=== PATIENT | female | born 1980 | race African-American/Black ===

== ENCOUNTER 2020-11-04 21:28 | Emergency (ER) | payer SELFPAY ==
[2020-11-04] MEDS ORDERED: KETOROLAC 30 MG/ML INJ ONE (22:33)
[2020-11-05 00:10] LABS: SARS-COV-2 RT PCR NEGATIVE (NEGATIVE)
--- NOTE | 2020-11-05 00:16 | EDPHYS ---
Physician Documentation [facility] Name: Cyndy Valdez Age: 40 yrs Sex: Female : 1980 Arrival Date: 11/04/2020 Time: 21:37 Bed 16 Private MD: ED Physician Kenn Lassiter HPI: 11/04 22:10 This 40 yrs old Black Female presents to ER via Ambulatory with complaints of Sore snw Throat, Cough, Fever. 22:10 This 40 yrs old Black Female presents to ER via Ambulatory with complaints of Sore snw Throat, Cough, Fever. 22:10 The patient presents with sore throat. The patient describes throat pain as raw, snw scratchy. Onset: The symptoms/episode began/occurred suddenly, today. Severity of symptoms: At their worst the symptoms were moderate. Modifying factors: The patient has had contact with sick at work. Associated signs and symptoms: Pertinent positives: flu-like symptoms, malaise, nausea. The patient has not experienced similar symptoms in the past. The patient has not recently seen a physician. 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 - Social history:: Smoking status: Patient reports the use of cigarette tobacco products, smokes one-half pack cigarettes per day. ROS: 22:09 Eyes: Negative for injury, pain, redness, and discharge, Neck: Negative for injury, snw pain, and swelling, Cardiovascular: Negative for chest pain, palpitations, and edema, Respiratory: Negative for shortness of breath, cough, wheezing, and pleuritic chest pain, Back: Negative for injury and pain, : Negative for injury, bleeding, discharge, and swelling, MS/Extremity: Negative for injury and deformity, Skin: Negative for injury, rash, and discoloration, Neuro: Negative for headache, weakness, numbness, tingling, and seizure. 22:09 Constitutional: Positive for body aches, malaise. 22:09 ENT: Positive for sore throat. 22:09 Abdomen/GI: Positive for nausea. Exam: 22:08 Head/Face: Normocephalic, atraumatic. Eyes: Pupils equal round and reactive to light, snw extra-ocular motions intact. Lids and lashes normal. Conjunctiva and sclera are non-icteric and not injected. Cornea within normal limits. Periorbital areas with no swelling, redness, or edema. Neck: Trachea midline, no thyromegaly or masses palpated, and no cervical lymphadenopathy. Supple, full range of motion without nuchal rigidity, or vertebral point tenderness. No Meningismus. Chest/axilla: Normal chest wall appearance and motion. Nontender with no deformity. No lesions are appreciated. Cardiovascular: Regular rate and rhythm with a normal S1 and S2. No gallops, murmurs, or rubs. Normal PMI, no JVD. No pulse deficits. Respiratory: Lungs have equal breath sounds bilaterally, clear to auscultation and percussion. No rales, rhonchi or wheezes noted. No increased work of breathing, no retractions or nasal flaring. Abdomen/GI: Soft, non-tender, with normal bowel sounds. No distension or tympany. No guarding or rebound. No evidence of tenderness throughout. Back: No spinal tenderness. No costovertebral tenderness. Full range of motion. Skin: Warm, dry with normal turgor. Normal color with no rashes, no lesions, and no evidence of cellulitis. MS/ Extremity: Pulses equal, no cyanosis. Neurovascular intact. Full, normal range of motion. Neuro: Awake and alert, GCS 15, oriented to person, place, time, and situation. Cranial nerves II-XII grossly intact. Motor strength 5/5 in all extremities. Sensory grossly intact. Cerebellar exam normal. Normal gait. Psych: Awake, alert, with orientation to person, place and time. Behavior, mood, and affect are within normal limits. 22:08 Constitutional: The patient appears alert, awake, tired appearing 22:08 ENT: External ear(s): are unremarkable, Ear canal(s): are normal, TM's: are normal, Nose: is normal, Mouth: Oral mucosa: pink and intact, Posterior pharynx: swelling, that is mild, erythema, that is moderate, exudate, is not appreciated, Voice: is normal. Vital Signs: 21:40 BP 100 / 76; Pulse 93; Resp 16 S; Temp 97.7(TE); Pulse Ox 99% on R/A; Weight 78.02 kg ca1 (R); Height 5 ft. 2 in. (157.48 cm) (R); Pain 5/10; 22:30 BP 124 / 82; Pulse 82; Resp 16; Pulse Ox 100% on R/A; zb 11/05 00:35 BP 121 / 85; Pulse 80; Resp 17; Pulse Ox 98% ; rr5 11/04 21:40 Body Mass Index 31.46 (78.02 kg, 157.48 cm) ca1 MDM: 11/04 21:49 Patient medically screened. snw 22:40 Data reviewed: vital signs, nurses notes. Data interpreted: Pulse oximetry: on room air snw is 99 %. Interpretation: normal. 11/04 22:05 Order name: Strep; Complete Time: 23:46 snw 11/04 23:46 Order name: Throat Culture EDMS 11/05 00:11 Order name: COVID-19/FLU A+B; Complete Time: 00:15 EDMS Administered Medications: 22:22 Drug: TORadol 60 mg Route: IM; Site: right gluteus; zb 23:19 Follow up: Response: No adverse reaction; Marked relief of symptoms zb Disposition: 11/05 06:07 Co-signature as Attending Physician, Kenn Lassiter MD. [facility] Disposition: 11/05/20 00:15 Discharged to Home. Impression: Disease of upper respiratory tract, unspecified. - Condition is Stable. - Discharge Instructions: Upper Respiratory Infection, Adult, COVID-19. - Prescriptions for Vitamin 27- 0.8 mg Oral Tablet - take 1 tablet by ORAL route once daily; 60 tablet. - Work release form, Medication Reconciliation Form, Thank You Letter, Antibiotic Education, Prescription Opioid Use form. - Follow up: Private Physician; When: 2 - 3 days; Reason: Recheck today's complaints, Continuance of care. Follow up: Emergency Department; When: As needed; Reason: Worsening of condition. Signatures: Dispatcher [employer] EDMS Lizette Crowder FNP-C SOIL CONSERVATIONIST-Csnw Can Coleman RN RN rr5 Olena Kidd RN RN [facility] Kenn Lassiter MD MD mh7 Tanya Rosas, RN RN zb Corrections: (The following items were deleted from the chart) 11/04 21:39 21:37 Social history: Smoking status: ca1 ca1 22:58 22:05 Influenza Screen (A \T\ B)+BA.LAB.BRZ ordered. EDID EDMS 11/05 00:51 00:15 11/05/2020 00:15 Discharged to Home. Impression: Disease of upper respiratory rr5 tract, unspecified. Condition is Stable. Forms are Medication Reconciliation Form, Thank You Letter, Antibiotic Education, Prescription Opioid Use. Follow up: Private Physician; When: 2 - 3 days; Reason: Recheck today's complaints, Continuance of care. Follow up: Emergency Department; When: As needed; Reason: Worsening of condition. snw
--- NOTE | 2020-11-05 00:16 | ER ---
Nurse's Notes [facility] Name: Cyndy Valdez Age: 40 yrs Sex: Female : 1980 Arrival Date: 11/04/2020 Time: 21:37 Bed 16 Private MD: Diagnosis: Disease of upper respiratory tract, unspecified Presentation: 11/04 21:37 Chief complaint: Patient states: Cough, congestion, sore throat, fatigue since this ca1 morning. Coronavirus screen: Client denies travel out of the [place] in the last 14 days. cough unrelated to allergies, fatigue, fever, sore throat, Client presents with at least one sign or symptom that may indicate coronavirus-19. Standard/surgical mask placed on the client. Provider contacted for isolation considerations. Ebola Screen: Patient negative for fever greater than or equal to 101.5 degrees Fahrenheit, and additional compatible Ebola Virus Disease symptoms Patient denies exposure to infectious person. Patient denies travel to an Ebola-affected area in the 21 days before illness onset. No symptoms or risks identified at this time. Initial Sepsis Screen: Does the patient meet any 2 criteria? No. Patient's initial sepsis screen is negative. Does the patient have a suspected source of infection? No. Patient's initial sepsis screen is negative. Risk Assessment: Do you want to hurt yourself or someone else? Patient reports no desire to harm self or others. Onset of symptoms was November 04, 2020. 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 - Social history:: Smoking status: Patient reports the use of cigarette tobacco products, smokes one-half pack cigarettes per day. Screenin:13 Abuse screen: Denies threats or abuse. Denies injuries from another. Nutritional zb screening: No deficits noted. Tuberculosis screening: No symptoms or risk factors identified. Fall Risk None identified. Assessment: 22:00 General: Appears in no apparent distress. uncomfortable, Behavior is calm, cooperative, zb appropriate for age, anxious, Reports fatigue for 1-2 days, Denies fever, chills. Pain: Complains of pain in neck Quality of pain is described as aching. Neuro: Level of Consciousness is awake, alert, obeys commands, Oriented to person, place, time, situation. Cardiovascular: Patient's skin is warm and dry. Respiratory: Reports cough that is Airway is patent Respiratory effort is even, unlabored, Respiratory pattern is regular, symmetrical, Breath sounds are clear bilaterally. Denies shortness of breath labored breathing. GI: No signs and/or symptoms were reported involving the gastrointestinal system. : No signs and/or symptoms were reported regarding the genitourinary system. EENT: Reports nasal congestion nasal discharge Denies blurred vision photophobia. Derm: Skin is intact, is healthy with good turgor, Skin is dry, Skin is normal, Skin temperature is warm. 23:00 Reassessment: Patient appears in no apparent distress at this time. Patient and/or zb family updated on plan of care and expected duration. Pain level reassessed. Patient is alert, oriented x 3, equal unlabored respirations, skin warm/dry/pink. patient resting at this moment. awaiting test results. 23:16 EENT: Throat is reddened. zb 11/05 00:06 Reassessment: Patient appears in no apparent distress at this time. Patient and/or zb family updated on plan of care and expected duration. Pain level reassessed. Patient is alert, oriented x 3, equal unlabored respirations, skin warm/dry/pink. light dimmed patient remains awaiting for results. 00:49 Reassessment: Patient appears in no apparent distress at this time. Patient is alert, rr5 oriented x 3, equal unlabored respirations, skin warm/dry/pink. discharge instruction given and explained without complaints made. Vital Signs: 11/04 21:40 BP 100 / 76; Pulse 93; Resp 16 S; Temp 97.7(TE); Pulse Ox 99% on R/A; Weight 78.02 kg ca1 (R); Height 5 ft. 2 in. (157.48 cm) (R); Pain 5/10; 22:30 BP 124 / 82; Pulse 82; Resp 16; Pulse Ox 100% on R/A; zb 11/05 00:35 BP 121 / 85; Pulse 80; Resp 17; Pulse Ox 98% ; rr5 11/04 21:40 Body Mass Index 31.46 (78.02 kg, 157.48 cm) ca1 ED Course: 11/04 21:37 Patient arrived in ED. ca1 21:38 Triage completed. ca1 21:39 Lizette Crowder FNP-C is [facility]. snw 21:39 Kenn Lassiter MD is Attending Physician. snw 21:39 Arm band placed on right wrist. ca1 22:05 Tanya Rosas, RN is Primary Nurse. zb 23:15 Patient has correct armband on for positive identification. Bed in low position. Call zb light in reach. Side rails up X 1. Pulse ox on. NIBP on. 11/05 00:49 No provider procedures requiring assistance completed. Patient did not have IV access rr5 during this emergency room visit. Administered Medications: 11/04 22:22 Drug: TORadol 60 mg Route: IM; Site: right gluteus; zb 23:19 Follow up: Response: No adverse reaction; Marked relief of symptoms zb Outcome: 11/05 00:15 Discharge ordered by . snw 00:49 Discharged to home ambulatory. rr5 00:49 Condition: stable 00:49 Discharge instructions given to patient, Instructed on discharge instructions, follow up and referral plans. medication usage, Demonstrated understanding of instructions, follow-up care, medications, Prescriptions given X 1. 00:51 Patient left the ED. rr5 Signatures: Lizette Crowder FNP-C FLATCAR WHACKER-Csnw Can Coleman RN RN rr5 Olena Kidd RN RN ca1 Tanya Rosas, MARCOS RN zb Corrections: (The following items were deleted from the chart) 11/04 21:39 21:37 Chief complaint: Patient states: Cough, sore throat, fever, fatigue since this ca1 morning. ca1 21:39 21:37 Social history: Smoking status: ca1 ca1
[2020-11-05 01:11] VITALS: TEMP 97.7
[2020-11-05 01:14] VITALS: BP 121/85; O2SAT 98
== END 2020-11-05 00:51 | disposition home or self-care (01) ==
LOC: ER 21:28
DX: J39.9 Disease of upper respiratory tract, unspecified (principal); Z20.822 Contact with and (suspected) exposure to COVID-19; F17.210 Nicotine dependence, cigarettes, uncomplicated
CPT/HCPCS: 0240U; 87070; 87081; 96372; 99283

== ENCOUNTER 2021-02-14 07:38 | Emergency (ER) | payer SELFPAY ==
[2021-02-14 08:13] LABS: Urine Blood 2+ (Negative); Urine Glucose Negative (Negative); Urine Protein Negative (Negative)
[2021-02-14 08:37] LABS: Urine Bacteria >50 /HPF (<20)
[2021-02-14] MEDS ORDERED: ONDANSETRON 4 MG/2 ML VIAL ONE (08:52)
[2021-02-14] MEDS ORDERED: MORPHINE 4 MG/ML SYR ONE (08:52)
[2021-02-14] MEDS ORDERED: CEFTRIAXONE/SWI 1gm 1 GM/10 ML SYR ONE (08:52)
[2021-02-14] MEDS ORDERED: NA CHLORIDE 0.9% 500 ML ONE (08:52)
[2021-02-14 09:04] LABS: Absolute Lymphocytes (CBC) 0.8 K/uL (0.7-4.9); Basophils % 1.2 % (0-1.3); Hematocrit 38.7 % (36.0-45.0); Lymphocytes % 29.9 % (15.3-44.8); MPV 8.6 fL (7.6-11.3); RBC Red Blood Cell Count 4.52 M/uL (3.86-4.86)
[2021-02-14 09:20] LABS: Potassium 3.8 mmol/L (3.5-5.1)
[2021-02-14 10:26] LABS: Blood Morphology Comment NOT SEEN (NOT SEEN); Platelet Estimate ADEQ
--- NOTE | 2021-02-14 10:47 | RAD REPORT ---
EXAM DESCRIPTION: CT - Abdomen Pelvis W Contrast - 02/14/2021 10:13 am CLINICAL HISTORY: Abdominal pain COMPARISON: none. TECHNIQUE: Computed axial tomography of the abdomen pelvis was obtained. 100 cc Isovue-300 was admin istered intravenously. Oral contrast was not requested which limits evaluation of bowel and appendix. All CT scans are performed using dose optimization technique as appropriate and may include automated exposure control or mA/KV adjustment according to patient size. FINDINGS: A 9 millimeter enhancing lesion is present within the right lobe of the liver. The spleen, pancreas, adrenal and kidneys appear unremarkable. There is no evidence of diverticulitis. An abnormal appendix is not seen 2 centimeter left ovarian cyst with a small amount of free fluid. The uterus lies within the right pe lvis. Small umbilical hernia IMPRESSION: 2 centimeter left ovarian cyst with a small amount of free fluid A 9 millimeter enhancing lesion within the right lobe of the liver is nonspecific. It may represent a hemangioma. Nonemergent liver ultrasound is recommended
--- NOTE | 2021-02-14 11:56 | EDPHYS ---
Physician Documentation [facility] Name: Cyndy Valdez Age: 40 yrs Sex: Female : 1980 Arrival Date: 02/14/2021 Time: 07:40 Bed 14 Private MD: ED Physician Donta Moran HPI: 02/14 19:20 This 40 yrs old Black Female presents to ER via Ambulatory with complaints of Fever, kdr bodyaches, chills. 19:20 The patient reports fever, not measured (subjective). Onset: The symptoms/episode kdr began/occurred gradually, 4 day(s) ago. Modifying factors: there are no obvious modifying factors. Associated signs and symptoms: Pertinent positives: abdominal pain, chills, nausea. Severity of symptoms: At their worst the symptoms were mild moderate just prior to arrival, in the emergency department the symptoms have improved mildly. The patient has not experienced similar symptoms in the past. The patient has not recently seen a physician. Historical: - Allergies: 07:51 No Known Allergies; ph - PMHx: 07:51 None; ph - Immunization history:: Client reports having NOT received the Covid vaccine. - Social history:: Smoking status: Patient denies any tobacco usage or history of. ROS: 19:20 Constitutional: Negative for fever, chills, and weight loss, Eyes: Negative for injury, kdr pain, redness, and discharge, Neck: Negative for injury, pain, and swelling, Cardiovascular: Negative for chest pain, palpitations, and edema, Respiratory: Negative for shortness of breath, cough, wheezing, and pleuritic chest pain, Back: Negative for injury and pain, : Negative for injury, bleeding, discharge, and swelling, MS/Extremity: Negative for injury and deformity, Skin: Negative for injury, rash, and discoloration, Neuro: Negative for headache, weakness, numbness, tingling, and seizure activity. Psych: Negative for depression, anxiety, suicide ideation, homicidal ideation, and hallucinations, Allergy/Immunology: Negative for hives, rash, and allergies, Endocrine: Negative for neck swelling, polydipsia, polyuria, polyphagia, and marked weight changes, Hematologic/Lymphatic: Negative for swollen nodes, abnormal bleeding, and unusual bruising. 19:20 Abdomen/GI: Positive for abdominal pain, nausea, Negative for abdominal distension, anorexia, dysphagia, hematemesis, black/tarry stool, rectal pain, rectal bleeding, bowel incontinence. Exam: 19:20 Constitutional: This is a well developed, well nourished patient who is awake, alert, kdr and in no acute distress. Head/Face: Normocephalic, atraumatic. Eyes: Pupils equal round and reactive to light, extra-ocular motions intact. Lids and lashes normal. Conjunctiva and sclera are non-icteric and not injected. Cornea within normal limits. Periorbital areas with no swelling, redness, or edema. Neck: Trachea midline, no thyromegaly or masses palpated, and no cervical lymphadenopathy. Supple, full range of motion without nuchal rigidity, or vertebral point tenderness. No Meningismus. Chest/axilla: Normal chest wall appearance and motion. Nontender with no deformity. No lesions are appreciated. Cardiovascular: Regular rate and rhythm with a normal S1 and S2. No gallops, murmurs, or rubs. Normal PMI, no JVD. No pulse deficits. Respiratory: Lungs have equal breath sounds bilaterally, clear to auscultation and percussion. No rales, rhonchi or wheezes noted. No increased work of breathing, no retractions or nasal flaring. Back: No spinal tenderness. No costovertebral tenderness. Full range of motion. Skin: Warm, dry with normal turgor. Normal color with no rashes, no lesions, and no evidence of cellulitis. MS/ Extremity: Pulses equal, no cyanosis. Neurovascular intact. Full, normal range of motion. Neuro: Awake and alert, GCS 15, oriented to person, place, time, and situation. Cranial nerves II-XII grossly intact. Motor strength 5/5 in all extremities. Sensory grossly intact. Cerebellar exam normal. Normal gait. Psych: Awake, alert, with orientation to person, place and time. Behavior, mood, and affect are within normal limits. 19:20 Abdomen/GI: Inspection: obese Bowel sounds: active, diminished, in all quadrants, Palpation: soft, mild abdominal tenderness, in all quadrants. Vital Signs: 07:49 BP 124 / 89; Pulse 94; Resp 18; Temp 97.9; Weight 80.74 kg; Height 5 ft. 2 in. (157.48 ph cm); 08:30 BP 121 / 80; Pulse 77; Resp 16; Pulse Ox 99% ; bp 09:30 BP 108 / 78; Pulse 72; Resp 16; Pulse Ox 98% ; bp 10:30 BP 115 / 78; Pulse 71; Resp 16; Pulse Ox 100% ; bp 12:00 BP 98 / 68; Pulse 68; Resp 16; Temp 98; Pulse Ox 99% ; bp 07:49 Body Mass Index 32.56 (80.74 kg, 157.48 cm) ph MDM: 11:55 Patient medically screened. kdr 19:20 Data reviewed: vital signs, nurses notes, lab test result(s), radiologic studies. kdr Counseling: I had a detailed discussion with the patient and/or guardian regarding: the historical points, exam findings, and any diagnostic results supporting the discharge/admit diagnosis, lab results, radiology results, the need for outpatient follow up. 02/14 07:56 Order name: CBC with Diff kdr 02/14 07:56 Order name: Chem 7 kdr 02/14 07:57 Order name: CBC with Automated Diff; Complete Time: 11:44 EDMS 02/14 07:57 Order name: Basic Metabolic Panel; Complete Time: 09:59 EDMS 02/14 08:13 Order name: Urine Dipstick-Ancillary; Complete Time: 09:59 EDMS 02/14 08:03 Order name: CT Abd/Pelvis - IV Contrast Only; Complete Time: 11:44 kdr 02/14 08:16 Order name: Urine Microscopic Only; Complete Time: 09:59 bd 02/14 08:16 Order name: Urine Culture bd 02/14 08:17 Order name: Urine --Ancillary (enter results) bd 02/14 08:18 Order name: Urine --Ancillary; Complete Time: 09:59 EDMS 02/14 10:25 Order name: Manual Differential; Complete Time: 11:44 EDMS 02/14 07:56 Order name: Urine Dipstick-Ancillary (obtain specimen); Complete Time: 08:05 kdr Administered Medications: 08:15 Drug: NS 0.9% 500 ml Route: IV; Rate: bolus; Site: right antecubital; bp 12:17 Follow up: IV Status: Completed infusion; IV Intake: 500ml bp 08:15 Drug: Zofran (Ondansetron) 4 mg Route: IVP; Site: right antecubital; bp 10:57 Follow up: Response: No adverse reaction bp 08:15 Drug: morphine 4 mg Route: IVP; Site: left upper arm; bp 10:57 Follow up: Response: Pain is decreased bp 08:15 Drug: Rocephin - (cefTRIAXone) 1 grams Route: IVPB; Infused Over: 30 mins; Site: right bp antecubital; 12:15 Follow up: IV Status: Completed infusion; IV Intake: 50ml bp Disposition Summary: 02/14/21 11:55 Discharge Ordered Location: Home kdr Problem: new kdr Symptoms: have improved kdr Condition: Stable kdr Diagnosis - Abdominal pain, Generalized kdr - UTI/ Urinary tract infection, site not specified kdr Followup: kdr - With: Private Physician - When: 2 - 3 days - Reason: If symptoms return, Further diagnostic work-up, Recheck today's complaints, Continuance of care, Re-evaluation by your physician Discharge Instructions: - Discharge Summary Sheet kdr - Urinary Tract Infection, Adult, [id number] kdr Forms: - Medication Reconciliation Form kdr - Thank You Letter kdr - Antibiotic Education kdr - Prescription Opioid Use kdr Prescriptions: - Zofran 4 mg Oral Tablet - take 1 tablet by ORAL route every 4-6 hours As needed; 12 tablet; Refills: 0, kdr Product Selection Permitted - Tramadol 50 mg Oral Tablet - take 1 tablet by ORAL route every 8 hours as needed; 12 tablet; Refills: 0, kdr Product Selection Permitted - Bactrim DS 800-160 mg Oral Tablet - take 1 tablet by ORAL route every 12 hours for 10 days; 20 tablet; Refills: 0, kdr Product Selection Permitted Signatures: Dispatcher [employer] EDMS Donta Moran MD MD kdr Ann Lester RN RN Germán Rucker, MARCOS RN bp Corrections: (The following items were deleted from the chart) 08:31 08:03 URINALYSIS+U.LAB.BRZ ordered. EDMS EDMS 10:25 09:06 CBC Smear Scan ordered. EDMS EDMS
--- NOTE | 2021-02-14 11:56 | ER ---
Nurse's Notes [facility] Name: Cyndy Valdez Age: 40 yrs Sex: Female : 1980 Arrival Date: 02/14/2021 Time: 07:40 Bed 14 Private MD: Diagnosis: Abdominal pain, Generalized;UTI/ Urinary tract infection, site not specified Presentation: 02/14 07:49 Chief complaint: Patient states: Fever, chills, fatigue, body aches, headache, ph constipation and lower abdominal pain since Friday, denies N/V. Coronavirus screen: Client denies travel out of the [place] in the last 14 days. At this time, the client does not indicate any symptoms associated with coronavirus-19. Ebola Screen: No symptoms or risks identified at this time. Initial Sepsis Screen: Does the patient meet any 2 criteria? No. Patient's initial sepsis screen is negative. Does the patient have a suspected source of infection? No. Patient's initial sepsis screen is negative. Risk Assessment: Do you want to hurt yourself or someone else? Patient reports no desire to harm self or others. Onset of symptoms was February 14, 2021. 07:49 Method Of Arrival: Ambulatory ph 07:49 Acuity: SHERRON 4 ph Triage Assessment: 07:55 General: Appears distressed, uncomfortable, ill, Behavior is cooperative, appropriate bp for age, anxious. Pain: Complains of pain in back, buttocks and neck. EENT: No deficits noted. Neuro: Level of Consciousness is awake, alert, obeys commands, Oriented to Appropriate for age. Cardiovascular: No deficits noted. Respiratory: No deficits noted. GI: Reports constipation. : No signs and/or symptoms were reported regarding the genitourinary system. Derm: No deficits noted. Musculoskeletal: Reports pain in GENERALIZED. Historical: - Allergies: 07:51 No Known Allergies; ph - PMHx: 07:51 None; ph - Immunization history:: Client reports having NOT received the Covid vaccine. - Social history:: Smoking status: Patient denies any tobacco usage or history of. Screenin:56 Abuse screen: Denies threats or abuse. Denies injuries from another. Nutritional bp screening: No deficits noted. Tuberculosis screening: No symptoms or risk factors identified. Fall Risk None identified. Assessment: 07:56 General: SEE TRIAGE NOTE. bp 08:57 Reassessment: No changes from previously documented assessment. Patient and/or family bp updated on plan of care and expected duration. Pain level reassessed. IVF INFUSING, CT PENDING. 10:59 Reassessment: No changes from previously documented assessment. Patient and/or family bp updated on plan of care and expected duration. Pain level reassessed. ALL CURRENT ORDERS COMPLETE. 12:11 Reassessment: PT D/C HOME AMBULATORY, DX WITH UTI. bp Vital Signs: 07:49 BP 124 / 89; Pulse 94; Resp 18; Temp 97.9; Weight 80.74 kg; Height 5 ft. 2 in. (157.48 ph cm); 08:30 BP 121 / 80; Pulse 77; Resp 16; Pulse Ox 99% ; bp 09:30 BP 108 / 78; Pulse 72; Resp 16; Pulse Ox 98% ; bp 10:30 BP 115 / 78; Pulse 71; Resp 16; Pulse Ox 100% ; bp 12:00 BP 98 / 68; Pulse 68; Resp 16; Temp 98; Pulse Ox 99% ; bp 07:49 Body Mass Index 32.56 (80.74 kg, 157.48 cm) ph ED Course: 07:40 Patient arrived in ED. am2 07:51 Germán Rucker, MARCOS is Primary Nurse. bp 07:51 Triage completed. ph 07:51 Arm band placed on Patient placed in an exam room, on a stretcher. ph 07:54 Donta Moran MD is Attending Physician. kdr 07:56 Patient has correct armband on for positive identification. Bed in low position. Call bp light in reach. Side rails up X2. 08:56 CBC with Diff Sent. bp 08:56 Chem 7 Sent. bp 09:25 Urine collected: clean catch specimen, cloudy. mh5 10:13 CT Abd/Pelvis - IV Contrast Only In Process Unspecified. EDMS 11:46 Urine --Ancillary (enter results) Sent. bp 12:14 No provider procedures requiring assistance completed. IV discontinued, intact, bp bleeding controlled, No redness/swelling at site. Pressure dressing applied. Administered Medications: 08:15 Drug: NS 0.9% 500 ml Route: IV; Rate: bolus; Site: right antecubital; bp 12:17 Follow up: IV Status: Completed infusion; IV Intake: 500ml bp 08:15 Drug: Zofran (Ondansetron) 4 mg Route: IVP; Site: right antecubital; bp 10:57 Follow up: Response: No adverse reaction bp 08:15 Drug: morphine 4 mg Route: IVP; Site: left upper arm; bp 10:57 Follow up: Response: Pain is decreased bp 08:15 Drug: Rocephin - (cefTRIAXone) 1 grams Route: IVPB; Infused Over: 30 mins; Site: right bp antecubital; 12:15 Follow up: IV Status: Completed infusion; IV Intake: 50ml bp Intake: 12:15 IV: 50ml; Total: 50ml. bp 12:17 IV: 500ml; Total: 550ml. bp Outcome: 11:55 Discharge ordered by . kdr 12:13 Discharged to bp 12:13 Condition: stable 12:13 Discharge instructions given to patient, Instructed on discharge instructions, follow up and referral plans. medication usage, Demonstrated understanding of instructions, follow-up care, medications, Prescriptions given X 3. 12:18 Patient left the ED. bp Addendum: 02/17/2021 07:29 Addendum: Culture Results: Positive urine culture. No further action required. Bacteria e b sensitive to prescribed antibiotic. Signatures: Dispatcher [employer] EDMS Donta Moran MD MD kdr Hall, Patricia RN RN Sheila Nagel [facility] Rubi Morgan Brian, RN RN Domi Huitron
[2021-02-14 12:31] VITALS: BP 98/68; TEMP 98; O2SAT 99
== END 2021-02-14 12:18 | disposition home or self-care (01) ==
LOC: ER 07:38
DX: N39.0 Urinary tract infection, site not specified (principal)
CPT/HCPCS: 36415; 74177; 80048; 81003; 81015; 81025; 85025; 87077; 87086; 87088; 87186; 99284; J0696; J2405; J7040; Q9967

== ENCOUNTER 2021-02-28 10:53 | Emergency (ER) | payer SELFPAY ==
--- NOTE | 2021-02-28 13:22 | ER ---
Nurse's Notes [facility] Name: Cyndy Valdez Age: 40 yrs Sex: Female : 1980 Arrival Date: 02/28/2021 Time: 11:03 Bed Waiting Private MD: Diagnosis: Presentation: 02/28 11:22 Chief complaint: Patient states: Seen here on 02/14/[address] found lesions on liver and jl7 ovary, reports lower back pain that has gotten worse. Coronavirus screen: Client denies travel out of the [place] in the last 14 days. At this time, the client does not indicate any symptoms associated with coronavirus-19. Ebola Screen: No symptoms or risks identified at this time. Initial Sepsis Screen: Does the patient meet any 2 criteria? No. Patient's initial sepsis screen is negative. Does the patient have a suspected source of infection? No. Patient's initial sepsis screen is negative. Risk Assessment: Do you want to hurt yourself or someone else? Patient reports no desire to harm self or others. Onset of symptoms was February 14, 2021. 11:22 Method Of Arrival: Ambulatory [facility] 11:22 Acuity: SHERRON 4 jl7 Triage Assessment: 11:24 General: Appears in no apparent distress. uncomfortable, Behavior is calm, cooperative, jl7 appropriate for age. Pain: Complains of pain in low back area Pain currently is 10 out of 10 on a pain scale. 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 - Social history:: Smoking status: Patient/guardian denies using tobacco. Assessment: 12:44 Reassessment: pt not in lobby whem called. iw Vital Signs: 11:22 BP 107 / 76; Pulse 86; Resp 17; Temp 97.9; Pulse Ox 98% ; Weight 80.74 kg; Height 5 ft. jl7 2 in. (157.48 cm); Pain 10/10; 11:22 Body Mass Index 32.56 (80.74 kg, 157.48 cm) jl7 ED Course: 11:03 Patient arrived in ED. am2 11:24 Triage completed. jl7 11:24 Arm band placed on right wrist. Patient placed in waiting room, Patient notified of jl7 wait time. 11:46 Donta Moran MD is Attending Physician. [facility] 12:45 Rhea Beach, RN is Primary Nurse. iw Administered Medications: No medications were administered Outcome: 13:22 Patient left the ED. iw Signatures: Donta Moran MD MD kdr Rhea Beach, RN RN iw Angelika Mora RN RN jl7 Rubi Morgan am2
[2021-02-28 13:32] VITALS: BP 107/76; TEMP 97.9; O2SAT 98
== END 2021-02-28 13:22 | disposition left against medical advice (07) ==
LOC: ER 10:53
DX: Z53.21 Procedure and treatment not carried out due to patient leaving prior to being seen by health care provider (principal)
CPT/HCPCS: 99281

== ENCOUNTER 2022-02-23 08:53 | Emergency (ER) | payer SELFPAY ==
[2022-02-23] MEDS ORDERED: IBUPROFEN 400 MG TAB ONE (09:37)
--- NOTE | 2022-02-23 11:52 | EDPHYS ---
Physician Documentation [facility] Name: Cyndy Valdez Age: 41 yrs Sex: Female : 1980 Arrival Date: 02/23/2022 Time: 08:54 Bed 10 Private MD: ED Physician Levy Angel HPI: 02/23 09:47 This 41 yrs old Black Female presents to ER via Ambulatory with complaints of rn bodyaches, chills. 09:47 The patient reports fever, not measured (subjective). Onset: The symptoms/episode rn began/occurred yesterday. Modifying factors: there are no obvious modifying factors. Associated signs and symptoms: Pertinent positives: chills, cough, headache, runny nose, sinus congestion, Pertinent negatives: abdominal pain, chest pain, diarrhea, skin rash, shortness of breath. Severity of symptoms: At their worst the symptoms were moderate in the emergency department the symptoms are unchanged. The patient has not experienced similar symptoms in the past. The patient has not recently seen a physician. 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 - Social history:: Smoking status: Patient reports the use of cigarette tobacco products, smokes one-half pack cigarettes per day. - Family history:: not pertinent. - Hospitalizations: : No recent hospitalization is reported. 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 Exam: 09:47 Constitutional: This is a well developed, well nourished patient who is awake, alert, rn and in no acute distress. Head/Face: Normocephalic, atraumatic. Eyes: Periorbital areas with no swelling, redness, or edema. ENT: No stridor, + dry MM Neck: Trachea midline, no masses palpated. No Meningismus. Cardiovascular: Tachycardic, regular Respiratory: No increased work of breathing, no retractions or nasal flaring. Abdomen/GI: Soft, non-tender Skin: Warm, dry MS/ Extremity: Pulses equal, no cyanosis. Neuro: Awake and alert, GCS 15 Vital Signs: 09:05 BP 119 / 97; Pulse 106; Resp 20 S; Temp 99.1(T); Pulse Ox 100% on R/A; Weight 99.79 kg j9 (R); Height 5 ft. 2 in. (157.48 cm) (R); 10:00 BP 96 / 62; Pulse 87; Resp 12 S; Pulse Ox 93% on R/A; Pain 5/10; jg9 10:45 BP 102 / 60; Pulse 82; Resp 15 S; Pulse Ox 96% on R/A; Pain 2/10; jg9 11:42 BP 97 / 65; Pulse 77; Resp 15 S; Pulse Ox 98% ; jg9 09:05 Body Mass Index 40.24 (99.79 kg, 157.48 cm) j9 MDM: 08:56 Patient medically screened. rn 11:49 Differential diagnosis: viral Infection, bacterial infection, URI. Data reviewed: vital rn signs, nurses notes, lab test result(s), and as a result, I will discharge patient. Counseling: I had a detailed discussion with the patient and/or guardian regarding: the historical points, exam findings, and any diagnostic results supporting the discharge/admit diagnosis, lab results, the need for outpatient follow up, to return to the emergency department if symptoms worsen or persist or if there are any questions or concerns that arise at home. Special discussion: I discussed with the patient/guardian in detail that at this point there is no indication for admission to the hospital. It is understood, however, that if the symptoms persist or worsen the patient needs to return immediately for re-evaluation. 11:49 ED course: Pt francine Hastings. rn 02/23 09:21 Order name: SARS-COV-2 RT PCR (Document "Date of Onset" if Symptomatic); Complete Time: rn 11:51 02/23 09:21 Order name: Flu; Complete Time: 11:45 rn Administered Medications: 09:32 Drug: Motrin (ibuprofen) 800 mg Route: PO; jg9 10:06 Follow up: Response: No adverse reaction; Pain is decreased jg9 Disposition Summary: 02/23/22 11:51 Discharge Ordered Location: Home rn Problem: new rn Symptoms: have improved rn Condition: Stable rn Diagnosis - SARS-associated coronavirus as the cause of diseases classified elsewhere rn Followup: rn - With: Private Physician - When: As needed - Reason: Recheck today's complaints, Re-evaluation by your physician Discharge Instructions: - Discharge Summary Sheet rn - COVID-19 rn - 10 Things You Can Do to Manage Your COVID-19 Symptoms at Home - [facility] rn - Viral Illness, Adult rn Forms: - Medication Reconciliation Form rn - Thank You Letter rn - Antibiotic prn physical therapist - Prescription Opioid Use rn - Work release form jg9 Signatures: Dispatcher [employer] Levy Prieto MD MD rn Gilmore, Jennifer, RN RN jg9
--- NOTE | 2022-02-23 11:52 | ER ---
Nurse's Notes [facility] Name: Cyndy Valdez Age: 41 yrs Sex: Female : 1980 Arrival Date: 02/23/2022 Time: 08:54 Bed 10 Private MD: Diagnosis: SARS-associated coronavirus as the cause of diseases classified elsewhere Presentation: 02/23 09:05 Chief complaint: Patient states: I have not been feeling well since yesterday, it jg9 started with a cough and nasal drainage that has progressed into chest congestion-pain with cough, body aches/chills. 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 Coronavirus screen: Vaccine status: Patient reports receiving the 2nd dose of the covid vaccine. Ebola Screen: Patient negative for fever greater than or equal to 101.5 degrees Fahrenheit, and additional compatible Ebola Virus Disease symptoms Patient denies exposure to infectious person. Patient denies travel to an Ebola-affected area in the 21 days before illness onset. Initial Sepsis Screen: Does the patient meet any 2 criteria? HR > 90 bpm. Does the patient have a suspected source of infection? No. Patient's initial sepsis screen is negative. Risk Assessment: Do you want to hurt yourself or someone else? Patient reports no desire to harm self or others. Onset of symptoms is unknown. 09:05 Method Of Arrival: Ambulatory j9 09:05 Acuity: SHERRON 3 jg9 Triage Assessment: 09:08 General: Appears uncomfortable, Behavior is calm, cooperative. Pain: Complains of pain jg9 in neck, chest, abdomen, pelvis, right arm, right hand, left arm, left hand, right leg, right foot, left leg, left foot, back of neck, back of left arm, back of right arm, posterior chest, buttocks, back of left leg, back of right leg, left heel, right heel and back Pain currently is 8 out of 10 on a pain scale. Quality of pain is described as aching. 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 - Social history:: Smoking status: Patient reports the use of cigarette tobacco products, smokes one-half pack cigarettes per day. - Family history:: not pertinent. - Hospitalizations: : No recent hospitalization is reported. Screenin:09 Abuse screen: Denies threats or abuse. Denies injuries from another. Nutritional jg9 screening: No deficits noted. Tuberculosis screening: No symptoms or risk factors identified. Fall Risk None identified. Assessment: 09:32 Reassessment: No changes from previously documented assessment. Patient and/or family jg9 updated on plan of care and expected duration. Pain level reassessed. Patient is alert, oriented x 3, equal unlabored respirations, skin warm/dry/pink. 10:06 Reassessment: patient reports that the ibuprofen is helping her Patient states feeling jg9 better. Vital Signs: 09:05 BP 119 / 97; Pulse 106; Resp 20 S; Temp 99.1(T); Pulse Ox 100% on R/A; Weight 99.79 kg jg9 (R); Height 5 ft. 2 in. (157.48 cm) (R); 10:00 BP 96 / 62; Pulse 87; Resp 12 S; Pulse Ox 93% on R/A; Pain 5/10; jg9 10:45 BP 102 / 60; Pulse 82; Resp 15 S; Pulse Ox 96% on R/A; Pain 2/10; jg9 11:42 BP 97 / 65; Pulse 77; Resp 15 S; Pulse Ox 98% ; jg9 09:05 Body Mass Index 40.24 (99.79 kg, 157.48 cm) jg9 ED Course: 08:54 Patient arrived in ED. am2 08:56 Levy Angel MD is Attending Physician. rn 08:58 Rebekah Villa, MARCOS is Primary Nurse. jg9 09:07 Triage completed. jg9 09:09 Arm band placed on right wrist. jg9 09:09 Patient has correct armband on for positive identification. Bed in low position. Call jg9 light in reach. Warm blanket given. 10:12 Flu Sent. mb7 10:12 SARS-COV-2 RT PCR (Document "Date of Onset" if Symptomatic) Sent. mb7 10:52 No apparent distress. Resting quietly. Awaiting lab results. jg9 12:04 No provider procedures requiring assistance completed. jg9 12:06 Patient did not have IV access during this emergency room visit. jg9 Administered Medications: 09:32 Drug: Motrin (ibuprofen) 800 mg Route: PO; jg9 10:06 Follow up: Response: No adverse reaction; Pain is decreased jg9 Medication: 12:06 VIS not applicable for this client. jg9 Outcome: 11:51 Discharge ordered by . rn 12:05 Discharged to home ambulatory. jg9 12:05 Condition: stable 12:05 Discharge instructions given to patient. 12:10 Patient left the ED. jg9 Signatures: Levy Angel MD MD rn Moreno, Amanda am2 Breneman, Mary mb7 Rebekah Villa RN RN jg9
[2022-02-23 12:16] VITALS: TEMP 99.1
[2022-02-23 12:23] VITALS: BP 97/65; O2SAT 98
== END 2022-02-23 12:10 | disposition home or self-care (01) ==
LOC: ER 08:53
DX: U07.1 COVID-19 (principal); F17.210 Nicotine dependence, cigarettes, uncomplicated
CPT/HCPCS: 87804; 99283; U0003

== ENCOUNTER 2024-02-12 22:59 | Emergency (ER) | payer SELFPAY ==
--- OUTSIDE RECORDS SUMMARY | 2024-02-12 23:02 | XMS REPORT | Clinical Summary ---
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
[2024-02-12 23:59] LABS: Absolute Eosinophils 0.1 K/uL (0-0.5); Absolute Lymphocytes (CBC) 2.5 K/uL (0.7-4.9); Absolute Monocytes 0.6 K/uL (0.1-1.3); Absolute Neutrophil 3.3 K/uL (1.8-8.0); Basophils % 0.7 % (0-1.3); Eosinophils % 1.1 % (0-4.4); Hematocrit 36.5 % (36.0-45.0); Hemoglobin 12.2 g/dL (12.0-15.0); Lymphocytes % 38.4 % (15.3-44.8); MCH 28.2 pg (27.0-35.0); MCHC 33.4 g/dL (32.0-36.0); MCV 84.5 fL (80-100); MPV 7.8 fL (7.6-11.3); Monocytes % 9.4 % (3.3-12.3); Neutrophils % 50.4 % (41.7-73.7); Nucleated Red Blood Cells % 0.1 % (0-0); Platelets 319 thou/uL (152-406); RBC Red Blood Cell Count 4.32 M/uL (3.86-4.86); Red Cell Distribution Width 13.6 % (12.1-15.2)
[2024-02-13] MEDS ORDERED: NA CHLORIDE 0.9% 1,000 ML ONE (00:24)
[2024-02-13] MEDS ORDERED: MECLIZINE HCL 12.5 MG TAB ONE (00:24)
[2024-02-13 00:25] LABS: Anion Gap 12.5 mEq/L (5.0-15.0); Troponin High Sensitivity 15.2 pg/mL (<58.9)
[2024-02-13 00:26] LABS: Magnesium 2.1 mg/dL (1.6-2.4); Potassium 3.5 mEq/L (3.5-5.1)
--- NOTE | 2024-02-13 01:53 | EDPHYS ---
Physician Documentation [facility] Name: Cyndy Valdez Age: 43 yrs Sex: Female : 1980 Arrival Date: 02/12/2024 Time: 22:59 Bed 13 Private MD: ED Physician Jewel Francisco HPI: 02/12 00:13 This 43 yrs old Black Female presents to ER via Ambulatory with complaints of kb Dizziness, Numbness Of Hand, Numbness Of Lips, HEAD PRESSURE, Shortness Of Breath. 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 Reports symptoms are worse when she talks and improved when she is still and quiet. Denies chest pain, shortness of breath. States she was resting on the couch and when she got up she felt like the blood rushed to her head and she started having the symptoms. States this has never happened before. Denies any medical history. 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 - Infectious Disease History:: Denies. - Social history:: Smoking status: unknown Smoking status: Patient reports the use of cigarette tobacco products, around 5-7 cigarettes/day. ROS: 23:32 Constitutional: As per HPI kb Exam: 23:31 Constitutional: This is a well developed, well nourished patient who is awake, alert, kb and in no acute distress. Head/Face: Normocephalic, atraumatic. ENT: Moist Mucous membranes Cardiovascular: Regular rate Respiratory: Respirations even and unlabored. No increased work of breathing. Talking in full sentences Abdomen/GI: Soft, non-tender. No distention Skin: Warm, dry with normal turgor. Normal color. MS/ Extremity: Pulses equal, no cyanosis. Neurovascular intact. Full, normal range of motion. Neuro: Awake and alert, GCS 15, oriented to person, place, time, and situation. Moves all extremities. Normal gait. 23:31 ECG was reviewed by the Attending Physician. Vital Signs: 23:11 BP 140 / 84; Pulse 103; Resp 18; Temp 98.5; Pulse Ox 100% ; Weight 81.65 kg; Height 5 al5 ft. 5 in. ; 02/12 00:32 BP 106 / 72; Pulse 87; Resp 18; Pulse Ox 100% on R/A; pc2 01:23 BP 101 / 68; Pulse 86; Resp 18; Pulse Ox 100% on R/A; pc2 01:58 BP 113 / 70; Pulse 87; Resp 18; Pulse Ox 100% on R/A; Pain 0/10; pc2 02/11 23:11 Body Mass Index 29.95 (81.65 kg, 165.1 cm) al5 01:58 Pain Scale: Adult pc2 MDM: 02/11 23:26 Patient medically screened. kb 02/12 00:15 Data reviewed: vital signs, nurses notes. kb 02/11 23:31 Order name: Basic Metabolic Panel; Complete Time: 00:27 kb 02/11 23:31 Order name: CBC with Diff; Complete Time: 00:12 kb 02/11 23:31 Order name: Magnesium; Complete Time: 00:27 kb 02/11 23:31 Order name: Troponin HS; Complete Time: 00:27 kb 02/11 23:31 Order name: XRAY Chest (1 view) kb 02/11 23:31 Order name: CT Head Brain wo Cont kb 02/11 23:31 Order name: EKG; Complete Time: 23:31 kb 02/11 23:31 Order name: Cardiac monitoring; Complete Time: 23:48 kb 02/11 23:31 Order name: EKG - Nurse/Tech; Complete Time: 23:48 kb 02/11 23:31 Order name: IV Saline Lock; Complete Time: 23:48 kb 02/11 23:31 Order name: Labs collected and sent; Complete Time: 23:48 kb 02/11 23:31 Order name: O2 Per Protocol; Complete Time: 23:48 kb 02/11 23:31 Order name: O2 Sat Monitoring; Complete Time: 23:48 kb EC/27 23:31 Rate is 93 beats/min. Rhythm is regular. QRS [place] is Normal. OK interval is normal at kb 150 msec. QRS interval is normal at 74 msec. QT interval is normal at 469 msec. Administered Medications: 02/12 00:30 Drug: NS 0.9% IV 1000 ml IV at 1000 ml once Route: IV; Rate: 1000 ml; Site: left hand; pc2 01:53 Follow up: Response: No adverse reaction; Marked relief of symptoms; IV Status: pc2 Completed infusion; IV Intake: 1000ml 00:30 Drug: Meclizine PO 25 mg PO once Route: PO; pc2 01:53 Follow up: Response: No adverse reaction pc2 02:05 Drug: Potassium PO Effervescent Tablet 25 mEq PO once; dissolve in 4 ounces of water or pc2 juice Route: PO; 02:14 Follow up: Response: No adverse reaction pc2 Disposition Summary: 02/13/24 01:53 Discharge Ordered Notes: Location: Home cp Problem: new cp Symptoms: have improved cp Condition: Stable cp Diagnosis - Dizziness and giddiness cp - Paresthesia of skin cp - Volume depletion, unspecified cp Followup: cp - With: Private Physician - When: 2 - 3 days - Reason: Recheck today's complaints Discharge Instructions: - Discharge Summary Sheet cp - Dehydration, Adult cp - Dizziness cp - Paresthesia cp - Form - Return To Work pc2 Forms: - Medication Reconciliation Form cp - Antibiotic Education cp - Prescription Opioid Use cp - Patient Portal Instructions cp - Leadership Thank You Letter cp Prescriptions: - Meclizine 25 mg Oral Tablet - take 1 tablet ORAL route every 8 hours As needed; 30 tablet; Refills: 0, cp Product Selection Permitted Signatures: Dispatcher [employer] Shalini Pierson, MELVIN METHOD CONSULTANT-Jewel Polo PA PA cp Langhorst, Amanda, RN RN al5 Maria Elena hayward, RN RN pc2 Corrections: (The following items were deleted from the chart) 02/11 23:32 23:32 Head Brain Wo [id number] ordered. EDMS EDMS
--- NOTE | 2024-02-13 01:53 | ER ---
Nurse's Notes [facility] Name: Cyndy Valdez Age: 43 yrs Sex: Female : 1980 Arrival Date: 02/12/2024 Time: 22:59 Bed 13 Private MD: Diagnosis: Dizziness and giddiness;Paresthesia of skin;Volume depletion, unspecified Presentation: 02/11 23:11 Chief complaint: Patient states: pt c/o numbness and tingling bilateral upper al5 extremities x 1 hour. Coronavirus screen: Client denies travel out of the [place] in the last 14 days. At this time, the client does not indicate any symptoms associated with coronavirus-19. Ebola Screen: No symptoms or risks identified at this time. Initial Sepsis Screen: Does the patient meet any 2 criteria? HR > 90 bpm. No. Patient's initial sepsis screen is negative. Initial Sepsis Screen: Does the patient have a suspected source of infection? No. Patient's initial sepsis screen is negative. Risk Assessment: Do you want to hurt yourself or someone else?. Onset of symptoms was February 12, 2024 at 22:15. 23:11 Method Of Arrival: Ambulatory al5 23:11 Acuity: SHERRON 2 al5 Triage Assessment: 23:15 General: Appears in no apparent distress. uncomfortable, . Behavior is cooperative, al5 anxious, restless. Pain: Pain currently is 0 out of 10 on a pain scale. Neuro: Level of Consciousness is awake, alert, obeys commands, Oriented to person, place, time, situation, Husbandry Technician are equal bilaterally Gait is unsteady, Speech is normal, Facial symmetry appears normal, Intact Tingling in right arm and left arm Numbness in right arm and left arm. Cardiovascular: Patient's skin is warm and dry. Respiratory: No deficits noted. Airway is patent Trachea midline Respiratory effort is even, unlabored, Respiratory pattern is regular, symmetrical, Onset: The symptoms/episode began/occurred Derm: Skin is intact, Skin is pink, warm \T\ dry. normal, Skin temperature is warm. 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 - Infectious Disease History:: Denies. - Social history:: Smoking status: unknown Smoking status: Patient reports the use of cigarette tobacco products, around 5-7 cigarettes/day. Screenin/28 00:19 [facility] ED Fall Risk Assessment (Adult) History of falling in the last 3 months, pc2 including since admission No falls in past 3 months (0 pts). [facility] ED Fall Risk Assessment (Adult) History of falling in the last 3 months, including since admission No falls in past 3 months (0 pts) Confusion or Disorientation No (0 pts) Intoxicated or Sedated No (0 pts) Impaired Gait No (0 pts) Mobility Assist Device Used No (0 pt) Altered Elimination No (0 pt) Score/Fall Risk Level 0 - 2 = Low Risk. Abuse screen: Denies threats or abuse. Denies injuries from another. Nutritional screening: No deficits noted. Tuberculosis screening: No symptoms or risk factors identified. Assessment: 02/11 23:40 General: Appears in no apparent distress. unkempt, Behavior is anxious, restless. Pain: pc2 Denies pain. Neuro: Level of Consciousness is awake, alert, obeys commands, Oriented to person, place, time, situation, Husbandry Technician are equal bilaterally Moves all extremities. Speech is normal, Facial symmetry appears normal, Reports paresthesias in right hand, left hand and lips. Cardiovascular: Capillary refill < 3 seconds Patient's skin is warm and dry. Respiratory: Airway is patent Respiratory effort is even, Respiratory pattern is regular. GI: No signs and/or symptoms were reported involving the gastrointestinal system. : No signs and/or symptoms were reported regarding the genitourinary system. EENT: No signs and/or symptoms were reported regarding the EENT system. Derm: No signs and/or symptoms reported regarding the dermatologic system. Musculoskeletal: No signs and/or symptoms reported regarding the musculoskeletal system. 23:40 Cardiovascular: Rhythm is sinus rhythm. pc2 23:41 Respiratory: Breath sounds are clear. pc2 02/12 00:34 Reassessment: No changes from previously documented assessment. Patient is alert, pc2 oriented x 3, equal unlabored respirations, skin warm/dry/pink. 01:23 Reassessment: Patient and/or family updated on plan of care and expected duration. Pain pc2 level reassessed. Patient is alert, oriented x 3, equal unlabored respirations, skin warm/dry/pink. Patient states feeling better. Patient states symptoms have improved. Vital Signs: 02/11 23:11 BP 140 / 84; Pulse 103; Resp 18; Temp 98.5; Pulse Ox 100% ; Weight 81.65 kg; Height 5 al5 ft. 5 in. ; 02/12 00:32 BP 106 / 72; Pulse 87; Resp 18; Pulse Ox 100% on R/A; pc2 01:23 BP 101 / 68; Pulse 86; Resp 18; Pulse Ox 100% on R/A; pc2 01:58 BP 113 / 70; Pulse 87; Resp 18; Pulse Ox 100% on R/A; Pain 0/10; pc2 02/11 23:11 Body Mass Index 29.95 (81.65 kg, 165.1 cm) al5 01:58 Pain Scale: Adult pc2 ED Course: 02/11 23:03 Patient arrived in ED. gm2 23:15 Triage completed. al5 23:20 Arm band placed on right wrist. Patient placed in an exam room, on a stretcher. al5 23:24 Maria Elena hayward, RN is Primary Nurse. pc2 23:26 Shalini Nieves FNP-C is PHCP. kb 23:26 Jewel Francisco MD is Attending Physician. kb 23:45 Inserted saline lock: 20 gauge in left hand, using aseptic technique. Blood collected. pc2 23:48 Basic Metabolic Panel Sent. pc2 23:48 CBC with Diff Sent. pc2 23:49 Magnesium Sent. pc2 23:49 Troponin HS Sent. pc2 23:54 XRAY Chest (1 view) In Process Unspecified. EDMS 02/12 00:20 Patient has correct armband on for positive identification. Bed in low position. Call pc2 light in reach. Side rails up X2. Adult w/ patient. Provided Education on: POC and timeframe. 00:22 CT Head Brain wo Cont In Process Unspecified. EDMS 00:37 PHCP role handed off by Shalini Nieves FNP-C cp 00:37 Jewel Cannon PA is PHCP. cp 01:59 No provider procedures requiring assistance completed. IV discontinued, intact, pc2 bleeding controlled, No redness/swelling at site. Pressure dressing applied. Administered Medications: 00:30 Drug: NS 0.9% IV 1000 ml IV at 1000 ml once Route: IV; Rate: 1000 ml; Site: left hand; pc2 01:53 Follow up: Response: No adverse reaction; Marked relief of symptoms; IV Status: pc2 Completed infusion; IV Intake: 1000ml 00:30 Drug: Meclizine PO 25 mg PO once Route: PO; pc2 01:53 Follow up: Response: No adverse reaction pc2 02:05 Drug: Potassium PO Effervescent Tablet 25 mEq PO once; dissolve in 4 ounces of water or pc2 juice Route: PO; 02:14 Follow up: Response: No adverse reaction pc2 Medication: 00:19 VIS not applicable for this client. pc2 Intake: 01:53 IV: 1000ml; Total: 1000ml. pc2 Outcome: 01:53 Discharge ordered by MD. cp 01:59 Discharged to home ambulatory, with family, pc2 01:59 Condition: stable 02:15 Discharge instructions given to patient, Instructed on discharge instructions, follow pc2 up and referral plans. Demonstrated understanding of instructions, Prescriptions given X 1, 02:15 Patient left the ED. pc2 Signatures: Dispatcher [employer] EDMS Shalini Nieves, CLARISSAC QUALITY ASSURANCE CONSULTANT-Jewel Polo PA PA cp Mitchell, Ginger 2 Rubi Elder, MARCOS RN al5 Maria Elena hayward, RN RN pc2 Corrections: (The following items were deleted from the chart) 02:16 02:15 Discharge instructions given to patient, Instructed on discharge instructions, pc2 follow up and referral plans. Demonstrated understanding of instructions, pc2
[2024-02-13] MEDS ORDERED: POTASSIUM 25 MEQ EFFERV TAB ONE (02:01)
[2024-02-13 02:32] VITALS: BP 113/70; TEMP 98.5; O2SAT 100
--- NOTE | 2024-02-14 14:08 | EKG ---
Test Date: 2024-02-12 Test Time: 23:28:19 Hemodialysis Charge Nurse: [facility] MEASUREMENT RESULTS: Intervals: Rate: 93 UT: 150 QRSD: 74 QT: 378 QTc: 469 [place]: P: 82 UT: 150 QRS: 84 T: 74 INTERPRETIVE STATEMENTS: Normal sinus rhythm with sinus arrhythmia Normal ECG Compared to ECG 04/18/2016 06:00:35 Sinus bradycardia no longer present Electronically Signed On 02-14-24 14:06:09 CDT by Chuck Garcia
--- NOTE | 2024-02-15 11:30 | RAD REPORT ---
EXAM DESCRIPTION: CT - Head Brain Wo Cont - 02/13/2024 7:07 am CLINICAL HISTORY: 43-year-old female with dizziness and headache. COMPARISON: 04/18/2016. TECHNIQUE: CT brain without contrast. This exam was performed according to our departmental dose opt imization program which includes use of automated exposure control, adjustment of the mA and/or kV ac cording to patient size and/or use of iterative reconstruction technique. FINDINGS: The ventricles, sulci, and cisterns are within normal limits. The ceron-white matter diff erentiation is preserved. There is no mass effect, midline shift, intra- or extra-axial fluid colle ction/acute hemorrhage. The osseous structures are unremarkable. The paranasal sinuses and mastoi d air cells are clear. IMPRESSION: No acute intracranial abnormalities. Electronically signed by: Brooke Barron MD 02/13/2024 12:41 AM CDT RP Due to temporary technical issues with the PACS/Fluency reporting system, reports are being signed by the in house radiologist without review as a courtesy to ensure prompt reporting. The interpreting r adiologist is fully responsible for the content of the report.
--- NOTE | 2024-02-15 11:43 | RAD REPORT ---
EXAM DESCRIPTION: RAD - Chest Single View - 02/12/2024 11:52 pm CLINICAL HISTORY: CHEST PAIN TECHNIQUE: Frontal view of the chest. COMPARISON: No relevant prior studies available. FINDINGS: Lungs: Unremarkable. No consolidation. Pleural space: Unremarkable. No pneumothorax. Heart: Unremarkable. No cardiomegaly. Mediastinum: Unremarkable. Normal mediastinal contour. Bones/joints: Unremarkable. No acute fracture. IMPRESSION: No acute disease. Electronically signed by: Belkis Lantigua MD 02/13/2024 12:04 AM CDT Due to temporary technical issues with the PACS/Fluency reporting system, reports are being signed by the in house radiologist without review as a courtesy to ensure prompt reporting. The interpreting r adiologist is fully responsible for the content of the report.
== END 2024-02-13 02:15 | disposition home or self-care (01) ==
LOC: ER 22:59
DX: E86.9 Volume depletion, unspecified (principal); R20.2 Paresthesia of skin
CPT/HCPCS: 36415; 70450; 71045; 80048; 83735; 84484; 85025; 93005; 96360; 99284; J7030; J8597

== ENCOUNTER 2025-05-08 16:04 | Emergency (ER) | payer OTHER, SELFPAY ==
--- OUTSIDE RECORDS SUMMARY | 2025-05-08 16:08 | XMS REPORT | Clinical Summary ---
Author Name Unknown Organization [facility] Address [address] [place] [address] Care Team Providers Care Breaker Mechanic Name Role Phone Unavailable Primary Care Provider Unavailabl e Social History Tobacco Use Types Packs/Day Years Used Date Smoking Tobacco: Never Assessed Comments Unknown Sex and Gender Information Value Date Recorded Sex Assigned at Not on file Legal Sex Female 9:53 AM CDT Gender Identity Not on file Sexual Orientation Not on file Plan of Treatment Health Maintenance Due Date Last Done Comments COVID-19 Vaccine (2023-2 5 season) 2025 Influenza Vaccine (#1) 2025 Pneumococcal Vaccine Aged Out No long er eligible based on patient's age to complete this topic
[2025-05-08] MEDS ORDERED: ONDANSETRON 4 MG (ODT) TAB ONE (16:19)
[2025-05-08] MEDS ORDERED: SMZ./TMP. 800/160 MG TABLET ONE (16:19)
[2025-05-08] MEDS ORDERED: HYDROCODONE/APAP 5/325 MG TAB ONE (16:20)
--- NOTE | 2025-05-08 17:14 | RAD REPORT ---
EXAM: Hand Right 3 View HISTORY: PAIN COMPARISON: None FINDINGS: Bones: No acute fracture identified. Deformity at the distal radius and ulna likely sequela of remote healed fracture with residual deformity. Alignment:No significant malalignment. Degenerative changes:None significant. Other: No radiopaque foreign body. IMPRESSION: No acute osseous abnormality involving the imaged hand. No radiopaque foreign body.
--- NOTE | 2025-05-08 17:23 | ER ---
Nurse's Notes [facility] Name: Cyndy Valdez Age: 44 yrs Sex: Female : 1980 Arrival Date: 05/08/2025 Time: 16:04 Bed 12 Private MD: Diagnosis: Cellulitis of finger-right thumb Presentation: 05/08 16:11 Chief complaint: Right finger laceration while cleaning refrigerator yesterday, pain hb became severe last night. Coronavirus screen: At this time, the client does not indicate any symptoms associated with coronavirus-19. Ebola Screen: No symptoms or risks identified at this time. Initial Sepsis Screen: Does the patient meet any 2 criteria? No. Patient's initial sepsis screen is negative. Does the patient have a suspected source of infection? No. Patient's initial sepsis screen is negative. Risk Assessment: Do you want to hurt yourself or someone else? Patient reports no desire to harm self or others. Onset of symptoms was May 07, 2025. 16:11 Method Of Arrival: Ambulatory hb 16:11 Acuity: SHERRON 4 hb Triage Assessment: 16:15 General: Appears in no apparent distress. uncomfortable, Behavior is cooperative, hb restless. Pain: Pain currently is 10 out of 10 on a pain scale. Neuro: Level of Consciousness is awake, alert, obeys commands, Oriented to person, place, time, situation. Cardiovascular: Patient's skin is warm and dry. Respiratory: Respiratory effort is even, unlabored, Respiratory pattern is regular, symmetrical. Musculoskeletal: redness and swelling noted to right thumb. Historical: - Allergies: 16:13 No Known Allergies; hb - Home Meds: 16:13 None [Active]; hb - PMHx: 16:13 None; hb Vital Signs: 16:11 BP 154 / 91; Pulse 89; Resp 16; Temp 98.1; Pulse Ox 100% on R/A; Weight 99.79 kg; hb Height 5 ft. 3 in. ; Pain 10/10; 16:11 Body Mass Index 38.97 (99.79 kg, 160.02 cm) hb 16:11 Pain Scale: Adult hb ED Course: 16:06 Patient arrived in ED. ts1 16:09 Jessy Rosas PA-C is PHCP. sb4 16:09 Levy Angel MD is Attending Physician. sb4 16:13 Triage completed. hb 16:14 Arm band placed on. hb 17:00 Hand Right 3 View XRAY In Process Unspecified. EDMS 17:33 No provider procedures requiring assistance completed. Patient did not have IV access hb during this emergency room visit. Administered Medications: 16:27 Drug: HYDROcodone-acetaminophen PO 5 mg-325 mg 2 tabs PO once Route: PO; hb 16:27 Drug: Ondansetron PO 4 mg PO once Route: PO; hb 16:27 Drug: Trimethoprim-Sulfamethoxazole PO (160 mg-800 mg (DS) 1 tablet PO once Route: PO; hb Outcome: 17:23 Discharge ordered by MD. sb4 17:33 Discharged to home ambulatory, with family, hb 17:33 Condition: stable 17:33 Discharge instructions given to patient, Instructed on discharge instructions, follow up and referral plans. medication usage, Demonstrated understanding of instructions, follow-up care, medications, Prescriptions given X 3, 17:34 Patient left the ED. hb Signatures: Dispatcher [employer] EDMS Merly Mitchell RN RN Jessy Braden, PA-C PA-C sb4 Carina Ryan, CAMRYN PAS ts1
--- NOTE | 2025-05-08 17:23 | EDPHYS ---
Physician Documentation [facility] Name: Cyndy Valdez Age: 44 yrs Sex: Female : 1980 Arrival Date: 05/08/2025 Time: 16:04 Bed 12 Private MD: ED Physician Levy Angel HPI: 05/08 17:48 This 44 yrs old Black Female presents to ER via Ambulatory with complaints of Finger sb4 Injury. 17:48 Patient states that she accidentally cut her right thumb cuticle last night. She states sb4 that some chicken juices dripped on it. She woke up in the middle of the night with a lot of pain and slowly redness has started to form down her thumb. She reports pain in her whole hand. No fever or chills. Historical: - Allergies: 16:13 No Known Allergies; hb - Home Meds: 16:13 None [Active]; hb - PMHx: 16:13 None; hb ROS: 17:48 Constitutional: Negative for fever, chills, and weight loss, sb4 17:48 MS/extremity: Positive for pain, 17:48 Skin: Positive for cellulitis, 17:48 All other systems are negative, Exam: 17:51 Constitutional: This is a well developed, well nourished patient who is awake, alert, sb4 and in no acute distress. Head/Face: Normocephalic, atraumatic. Eyes: Extra-ocular motions intact. Periorbital areas with no swelling, redness, or edema. ENT: Mucous membranes moist. Respiratory: No increased work of breathing, no retractions or nasal flaring. 17:51 Skin: cellulitis, that is moderate, patchy, on the dorsal aspect of proximal phalanx of right thumb and palmar aspect of proximal phalanx of right thumb, injury, very superficial laceration base of right thumb nail/cuticle, Vital Signs: 16:11 BP 154 / 91; Pulse 89; Resp 16; Temp 98.1; Pulse Ox 100% on R/A; Weight 99.79 kg; hb Height 5 ft. 3 in. ; Pain 10/10; 16:11 Body Mass Index 38.97 (99.79 kg, 160.02 cm) hb 16:11 Pain Scale: Adult hb MDM: 16:09 Medical Screening Exam initiated sb4 17:51 Differential diagnosis: Cellulitis, tenosynovitis, abscess, fracture. Data reviewed: sb4 vital signs, nurses notes, radiologic studies, and as a result, I will discharge patient. Counseling: I had a detailed discussion with the patient and/or guardian regarding the historical points, exam findings, and any diagnostic results supporting the discharge/admit diagnosis, radiology results, the need for outpatient follow up, for definitive care, to return to the emergency department if symptoms worsen or persist or if there are any questions or concerns that arise at home. ED course: Instructed patient to return to the ED if the redness or pain is not improving in 24 hours. 05/08 16:14 Order name: Hand Right 3 View XRAY; Complete Time: 17:22 sb4 Administered Medications: 16:27 Drug: HYDROcodone-acetaminophen PO 5 mg-325 mg 2 tabs PO once Route: PO; hb 16:27 Drug: Ondansetron PO 4 mg PO once Route: PO; hb 16:27 Drug: Trimethoprim-Sulfamethoxazole PO (160 mg-800 mg (DS) 1 tablet PO once Route: PO; hb Disposition: 18:28 Co-signature as Attending Physician, Levy Angel MD I reviewed the patient's care rn provided by the Advanced Practice Provider and agree with the diagnosis and treatment plan. Disposition Summary: 05/08/25 17:23 Discharge Ordered Notes: Location: Home sb4 Problem: new sb4 Symptoms: have improved sb4 Condition: Stable sb4 Diagnosis - Cellulitis of finger - right thumb sb4 Followup: sb4 - With: Emergency Department - When: As needed - Reason: Fever > 102 F, Worsening of condition Discharge Instructions: - Discharge Summary Sheet sb4 - Cellulitis, Adult, Nmol-cf-Mlml sb4 Forms: - Antibiotic Education sb4 - Patient Portal Instructions sb4 - Leadership Thank You Letter sb4 Prescriptions: - Ibuprofen 800 mg Oral Tablet - take 1 tablet ORAL route every 8 hours As needed take with food; 30 tablet; sb4 Refills: 0, Product Selection Permitted - Tramadol 50 mg Oral Tablet - take 1 tablet ORAL route every 8 hours as needed; 12 tablet; Refills: 0, sb4 Product Selection Permitted - Bactrim DS 800-160 mg Oral Tablet - take 1 tablet ORAL route every 12 hours for 7 days; 14 tablet; Refills: 0, sb4 Product Selection Permitted Signatures: Dispatcher [employer] EDMS Angel, Levy, MD MD rn Mitchell, Merly, RN RN Jessy Braden, CHAZ WARE sb4
[2025-05-08 17:53] VITALS: BP 154/91; TEMP 98.1; O2SAT 100
== END 2025-05-08 17:34 | disposition home or self-care (01) ==
LOC: ER 16:04
DX: L03.011 Cellulitis of right finger (principal)
CPT/HCPCS: 73130; 99283; Q0162

== ENCOUNTER 2025-05-08 21:55 | Emergency (ER) | payer OTHER, SELFPAY ==
--- OUTSIDE RECORDS SUMMARY | 2025-05-08 21:58 | XMS REPORT | Clinical Summary ---
Author Name Unknown Organization [facility] Address [address] [place] [address] Care Team Providers Care Sort Worker Name Role Phone Unavailable Primary Care Provider [...]
[2025-05-09] MEDS ORDERED: LIDOCAINE 1% MPF 5 ML VIAL ONE (00:12)
[2025-05-09] MEDS ORDERED: KETOROLAC 30 MG/ML INJ ONE (00:12)
[2025-05-09] MEDS ORDERED: BUPIVACAINE 0.5% PF 10 ML VIAL ONE (00:12)
[2025-05-09] MEDS ORDERED: CLINDAMYCIN 900MG/D5W 900 MG/50 ML IVPB IV ONE (00:14)
[2025-05-09 01:08] LABS: Absolute Lymphocytes (CBC) 2.2 K/uL (0.7-4.9); Hematocrit 40.8 % (36.0-45.0); Hemoglobin 13.7 g/dL (12.0-15.0); MCH 28.3 pg (27.0-35.0); MCHC 33.6 g/dL (32.0-36.0); MCV 84.3 fL (80-100); MPV 8.4 fL (7.6-11.3); Nucleated RBC Absolute Count 0.0 (0-0); Nucleated Red Blood Cells % 0.4 % (0-0); RBC Red Blood Cell Count 4.83 M/uL (3.86-4.86); White Blood Count 9.30 thou/uL (4.3-10.9)
[2025-05-09 01:24] LABS: Anion Gap 9.9 mEq/L (5.0-15.0); BUN Blood Urea Nitrogen 15.0 mg/dL (7-18); Glucose Level 107.0 mg/dL (74-106); Potassium 3.9 mEq/L (3.5-5.1)
[2025-05-09] MEDS ORDERED: ONDANSETRON 4 MG/2 ML VIAL ONE (01:27)
[2025-05-09] MEDS ORDERED: LORazepam 2 MG/ML VIAL ONE (01:37)
--- NOTE | 2025-05-09 02:08 | ER ---
Nurse's Notes [facility] Name: Cyndy Valdez Age: 44 yrs Sex: Female : 1980 Arrival Date: 05/08/2025 Time: 21:55 Bed 8 Private MD: Diagnosis: Cutaneous abscess of right hand-right thumb paronychia Presentation: 05/08 22:10 Chief complaint: Patient states: RIGHT THUMB PAIN THAT RADIATES DOWN HER HAND. STATES jj7 SHE CUT HER THUMB YESTERDAY AND WAS CLEANING UP AND THINKS MAYBE SOMETHING GOT INTO IT. WAS SEEN IN ER EARLIER TODAY DISCHARGED AROUND 1800 WITH PAIN MEDS AND PRESCRIPTION FOR ANTIBIOTICS. STATES SHE WAS UNABLE TO GET PRESCRIPTION BECAUSE THE PHARMACY [place] CLOSED. Coronavirus screen: Coronavirus screen: At this time, the client does not indicate any symptoms associated with coronavirus-19. Ebola Screen: No symptoms or risks identified at this time. Initial Sepsis Screen: Does the patient meet any 2 criteria? No. Patient's initial sepsis screen is negative. Does the patient have a suspected source of infection? No. Patient's initial sepsis screen is negative. Risk Assessment: Do you want to hurt yourself or someone else? Patient reports no desire to harm self or others. Onset of symptoms was May 08, 2025. 22:10 Method Of Arrival: Ambulatory [facility] 22:10 Acuity: SHERRON 4 jj7 Triage Assessment: 22:10 General: Appears in no apparent distress. uncomfortable, Behavior is calm, cooperative, jj7 appropriate for age. Pain: Complains of pain in lateral aspect of right hand, palmar aspect of distal phalanx of right thumb and palmar aspect of proximal phalanx of right thumb Pain radiates to dorsal aspect of distal phalanx of right thumb, dorsal aspect of proximal phalanx of right thumb, dorsal aspect of right wrist, palmar aspect of distal phalanx of right thumb, palmar aspect of proximal phalanx of right thumb and palmar aspect of right wrist. Cardiovascular: No deficits noted. Respiratory: No deficits noted. Musculoskeletal: Swelling present in dorsal aspect of distal phalanx of right thumb and right thumbnail. Injury Description: Puncture. 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 - Infectious Disease History:: Denies. - Social history:: Smoking status: Patient reports the use of cigarette tobacco products, 5 CIGS A DAY, Patient/guardian denies using alcohol, street drugs, IV drugs. Screenin/22 00:30 [facility] [place] ED Fall Risk Assessment (Adult) History of falling in the last 3 months, vc1 including since admission No falls in past 3 months (0 pts) Confusion or Disorientation No (0 pts) Intoxicated or Sedated No (0 pts) Impaired Gait No (0 pts) Mobility Assist Device Used No (0 pt) Altered Elimination No (0 pt) Score/Fall Risk Level 0 - 2 = Low Risk Oriented to surroundings, Maintained a safe environment, Educated pt \T\ family on fall prevention, incl call for assistance when getting out of bed, Assessed \T\ reinforced patient's understanding of fall precautions, Hourly rounding (assess needs \T\ fall precautionary measures) done. Abuse screen: Denies threats or abuse. Nutritional screening: No deficits noted. Tuberculosis screening: No symptoms or risk factors identified. Vital Signs: 05/08 22:10 BP 137 / 93; Pulse 78; Resp 20; Temp 97; Pulse Ox 100% ; Weight 97.52 kg; Height 5 ft. jj7 3 in. ; Pain 10/10; 05/09 01:00 BP 119 / 81; Pulse 76; Resp 20; Pulse Ox 100% ; vc1 02:09 BP 116 / 80; Pulse 71; Resp 20; Pulse Ox 100% ; vc1 05/08 22:10 Body Mass Index 38.09 (97.52 kg, 160.02 cm) jj7 05/08 22:10 Pain Scale: Adult j7 ED Course: 05/08 22:00 Patient arrived in ED. gm2 22:10 Arm band placed on right wrist. jj7 22:15 Triage completed. jj7 23:28 Jewel Cannon PA-C is PHCP. cp 23:29 Ilya Noonan DO is Attending Physician. cp 05/09 00:22 Elli Livingston, MARCOS is Primary Nurse. vc1 00:25 Missed attempt(s): 20 gauge in right antecubital area. Bleeding controlled, band aid sa1 applied, catheter tip intact. 00:30 Patient has correct armband on for positive identification. Placed in gown. Call light vc1 in reach. Adult w/ patient. Provided Education on: Plan of care. Pulse ox on. NIBP on. 00:50 Missed attempt(s): 20 gauge in left upper arm. Bleeding controlled, band aid applied, vc1 catheter tip intact. 00:56 Missed attempt(s): 20 gauge in left wrist. Bleeding controlled, band aid applied, sa1 catheter tip intact. 01:01 Inserted saline lock: 22 gauge in right forearm, using aseptic technique. Blood vc1 collected. Flushed with 10 mL NS. 02:15 Assist provider with I \T\ D: of an abscess on right thumb Assist provider with nerve vc1 block (dental) of right thumb Set up for procedure. Performed by Jewel Cannon PA-C Patient tolerated well. 02:16 IV discontinued, intact, bleeding controlled, No redness/swelling at site. Pressure vc1 dressing applied. Administered Medications: 01:01 Drug: Ketorolac IVP 15 mg IVP once Route: IVP; Site: right forearm; vc1 01:31 Follow up: Response: (VIS) Vaccine information sheet provided today. Questions and/or vc1 concerns addressed. VIS edition date: Mar 23, 2021.; Marked relief of symptoms 01:31 Drug: Ondansetron IVP 4 mg IVP once; over 2 minutes Route: IVP; Site: right forearm; vc1 02:09 Follow up: Response: No adverse reaction; Marked relief of symptoms vc1 01:32 Drug: Lidocaine Infiltration (1 %) 5 ml 5 ml Infiltration once; to bedside {Note: right vc1 thumb administered by PA. Holli} Volume: 5 ml; Route: Infiltration; Site: affected area; 01:32 Drug: Bupivacaine Infiltration (0.5 %) 10 ml 10 ml Infiltration once {Note: right vc1 thumb, administered by PA. Holli} Volume: 10 ml; Route: Infiltration; Site: affected area; 01:45 Drug: Clindamycin IVPB 900 mg IVPB once over 30 mins; (mix in 50 mL) Route: IVPB; vc1 Infused Over: 30 mins; Site: right forearm; 02:09 Follow up: IV Status: Completed infusion; IV Intake: 50ml vc1 01:45 Drug: Ativan IVP 1 mg IVP once Route: IVP; Site: right forearm; vc1 02:09 Follow up: Response: No adverse reaction; Marked relief of symptoms vc1 Medication: 01:02 VIS not applicable for this client. vc1 Intake: 02:09 IV: 50ml; Total: 50ml. vc1 Outcome: 02:07 Discharge ordered by MD. alonzo 02:16 Discharged to home ambulatory, with significant other, vc1 02:16 Condition: stable 02:16 Discharge instructions given to patient, Instructed on discharge instructions, follow up and referral plans. medication usage, Demonstrated understanding of instructions, follow-up care, medications, Prescriptions given X 2, 02:24 Patient left the ED. vc1 Signatures: Jewel Cannon, PA-C PAElli Adams cp, RN RN vc1 Darin Roldan RN RN jCasie Moura 2 [place] [facility]
--- NOTE | 2025-05-09 02:08 | EDPHYS ---
Physician Documentation [facility] Name: Cyndy Valdez Age: 44 yrs Sex: Female : 1980 Arrival Date: 05/08/2025 Time: 21:55 Bed 8 Private MD: ED Physician Ilya Noonan HPI: 05/09 00:00 This 44 yrs old Black Female presents to ER via Ambulatory with complaints of Finger cp Injury, Hand Pain. 00:00 The patient or guardian reports injury, pain, swelling, tenderness. The complaints cp affect the distal phalanx right thumb. Context: cut injury. Onset: The symptoms/episode began/occurred yesterday, 2 day(s) ago, and became worse today. Associated signs and symptoms: Pertinent positives: radiating pain to hand, Pertinent negatives: fever. 00:00 Patient is a 44-year-old female who returns to the emergency department with reported cp increased right thumb pain. She was seen yesterday in the emergency department and prescribed oral antibiotics but has been unable to greens picker prescription from the pharmacy due to closure. Patient reports she believes the pain discomfort is due to a cut injury that she sustained 2 days ago but reports increased swelling and discomfort the distal part of the thumb. 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 - Infectious Disease History:: Denies. - Social history:: Smoking status: Patient reports the use of cigarette tobacco products, 5 CIGS A DAY, Patient/guardian denies using alcohol, street drugs, IV drugs. ROS: 05/09 00:05 MS/extremity: Positive for erythema, pain, swelling, tenderness, of the distal phalanx cp right thumb, Negative for decreased range of motion, paresthesias, 00:05 Constitutional: Negative for body aches, chills, fever, cp 00:05 Cardiovascular: Negative for chest pain, 00:05 Respiratory: Negative for cough, shortness of breath, wheezing, 00:05 Abdomen/GI: Negative for abdominal pain, 00:05 Neuro: Negative for dizziness, headache, 00:05 All other systems are negative, Exam: 00:10 Head/Face: Normocephalic, atraumatic. cp 00:10 Constitutional: The patient appears in no acute distress, alert, awake, non-toxic, well developed, well nourished, uncomfortable, 00:10 Eyes: Periorbital structures: appear normal, Sclera: no appreciated abnormality, Lids and lashes: appear normal, bilaterally, 00:10 ENT: External ear(s): are unremarkable, Nose: is normal, Mouth: Lips: moist, Oral mucosa: moist, Posterior pharynx: Airway: no evidence of obstruction, patent, 00:10 Chest/axilla: Inspection: normal, 00:10 Cardiovascular: Rate: normal, 00:10 Respiratory: the patient does not display signs of respiratory distress, Respirations: normal, no use of accessory muscles, no retractions, labored breathing, is not present, Breath sounds: are clear throughout, no decreased breath sounds, no stridor, no wheezing, 00:10 Abdomen/GI: Inspection: abdomen appears normal, 00:10 Musculoskeletal/extremity: Extremities: noted in the right thumb: Marked swelling, erythema and small abscess noted at the base of ulnar side of nail of right thumb. Associated tenderness to palpation, mild swelling extending proximally with associated tenderness and pain, 00:10 Neuro: Orientation: to person, place \T\ time. Mentation: is normal, Vital Signs: 05/08 22:10 BP 137 / 93; Pulse 78; Resp 20; Temp 97; Pulse Ox 100% ; Weight 97.52 kg; Height 5 ft. jj7 3 in. ; Pain 05/27; 05/09 01:00 BP 119 / 81; Pulse 76; Resp 20; Pulse Ox 100% ; vc1 02:09 BP 116 / 80; Pulse 71; Resp 20; Pulse Ox 100% ; vc1 05/08 22:10 Body Mass Index 38.09 (97.52 kg, 160.02 cm) jj7 05/08 22:10 Pain Scale: Adult jj7 Procedures: 02:05 I \T\ D: Incision and drainage was performed for an abscess of the base of ulna side of cp nail right thumb Prepped with Betadine, Anesthetized with digital block using 7 cc mixture 1% lidocaine w/o epi and 0.5% Marcaine w/o epi. Incised with 18 gauge needle and pair hemostats. Drained small amount purulent fluid. bloody fluid. Packed with iodoform gauze, Dressing: sterile 4x4 gauze, coban the patient tolerated the procedure well. MDM: 05/08 23:29 Medical Screening Exam initiated 05/09 00:00 Differential diagnosis: abscess, cellulitis, ingrown nail. 02:07 Data reviewed: vital signs, nurses notes, and as a result, I will discharge patient. 02:07 I considered the following discharge prescriptions or medication management in the emergency department Medications were administered in the Emergency Department. See MAR. Counseling: I had a detailed discussion with the patient and/or guardian regarding the historical points, exam findings, and any diagnostic results supporting the discharge/admit diagnosis, the need for outpatient follow up, a family practitioner, return to ED, to return to the emergency department if symptoms worsen or persist or if there are any questions or concerns that arise at home. Response to treatment: the patient's symptoms have mildly improved after treatment, and as a result, I will discharge patient. ED course: VSS. I\T\D performed as noted. RX for 10 day course antibiotics given. Will discharge to home for continued monitoring with recommendation wound check in 2-3 days for packing removal. 05/09 00:09 Order name: CBC with Diff; Complete Time: 02:05 05/09 00:09 Order name: BMP; Complete Time: 02:05 05/09 02:05 Interpretation: Normal except: CL 108; GLUC 107; GFR 70. 05/09 00:09 Order name: Test, Serum; Complete Time: 02:05 05/09 00:09 Order name: IV; Complete Time: 01:01 Administered Medications: 01:01 Drug: Ketorolac IVP 15 mg IVP once Route: IVP; Site: right forearm; vc1 01:31 Follow up: Response: (VIS) Vaccine information sheet provided today. Questions and/or vc1 concerns addressed. VIS edition date: Mar 23, 2021.; Marked relief of symptoms 01:31 Drug: Ondansetron IVP 4 mg IVP once; over 2 minutes Route: IVP; Site: right forearm; vc1 02:09 Follow up: Response: No adverse reaction; Marked relief of symptoms vc1 01:32 Drug: Lidocaine Infiltration (1 %) 5 ml 5 ml Infiltration once; to bedside {Note: right vc1 thumb administered by PA. Holli} Volume: 5 ml; Route: Infiltration; Site: affected area; 01:32 Drug: Bupivacaine Infiltration (0.5 %) 10 ml 10 ml Infiltration once {Note: right vc1 thumb, administered by PA. Holli} Volume: 10 ml; Route: Infiltration; Site: affected area; 01:45 Drug: Clindamycin IVPB 900 mg IVPB once over 30 mins; (mix in 50 mL) Route: IVPB; vc1 Infused Over: 30 mins; Site: right forearm; 02:09 Follow up: IV Status: Completed infusion; IV Intake: 50ml vc1 01:45 Drug: Ativan IVP 1 mg IVP once Route: IVP; Site: right forearm; vc1 02:09 Follow up: Response: No adverse reaction; Marked relief of symptoms vc1 Disposition: 19:01 Co-signature as Attending Physician, Ilya RUSSO reviewed the patient's care tt7 provided by the Advanced Practice Provider and agree with the diagnosis and treatment plan. 19:15 Chart complete. cp Disposition Summary: 05/09/25 02:07 Discharge Ordered Notes: Location: Home cp Problem: new cp Symptoms: have improved cp Condition: Stable cp Diagnosis - Cutaneous abscess of right hand - right thumb paronychia cp Followup: cp - With: Emergency Department - When: 2 - 3 days - Reason: Wound Recheck Discharge Instructions: - Discharge Summary Sheet cp - Incision and Drainage cp - Paronychia cp Forms: - Medication Reconciliation Form cp - Antibiotic Education cp - Prescription Opioid Use cp - Patient Portal Instructions cp - Leadership Thank You Letter cp - Family Work Release vc1 Prescriptions: - Clindamycin HCl 300 mg Oral Capsule - take 1 capsule ORAL route every 6 hours for 10 days; 40 capsule; Refills: 0, cp Product Selection Permitted - Bactrim DS 800-160 mg Oral Tablet - take 1 tablet ORAL route every 12 hours for 3 days; 6 tablet; Refills: 0, cp Product Selection Permitted Signatures: Dis[facility] Jewel Cannon PA-C PA-C cp Calcote, Vanessa, RN RN vc1 Darin Roldan RN RN jj7 Ilya Noonan, DO tt7 Corrections: (The following items were deleted from the chart) 00:10 00:10 CBC+H.LAB.BRZ ordered. EDOR EDOR 00:10 00:10 BASIC METABOLIC PANEL+C.LAB.BRZ ordered. EDOR EDOR 00:10 00:10 TEST, SERUM+SC.LAB.BRZ ordered. EDOR EDOR 19:10 05/08 00:10 Constitutional: The patient appears in no acute distress, alert, awake, cp non-toxic, well developed, well nourished, uncomfortable, cp 05/09 19:05/08 00:10 Head/Face: Normocephalic, atraumatic. cp cp 05/09 19:05/08 00:10 Eyes: Periorbital structures: appear normal, Sclera: no appreciated cp abnormality, Lids and lashes: appear normal, bilaterally, cp 05/09 19:05/08 00:10 ENT: External ear(s): are unremarkable, Nose: is normal, Mouth: Lips: cp moist, Oral mucosa: moist, Posterior pharynx: Airway: no evidence of obstruction, patent, cp 05/09 19:05/08 00:10 Chest/axilla: Inspection: normal, cp cp 05/09 19:05/08 00:10 Cardiovascular: Rate: normal, cp cp 05/09 19:05/08 00:10 Respiratory: the patient does not display signs of respiratory distress, cp Respirations: normal, no use of accessory muscles, no retractions, labored breathing, is not present, Breath sounds: are clear throughout, no decreased breath sounds, no stridor, no wheezing, cp 05/09 19:05/08 00:10 Abdomen/GI: Inspection: abdomen appears normal, cp cp 05/09 19:05/08 00:10 Musculoskeletal/extremity: Extremities: noted in the right thumb: Marked cp swelling, erythema and small abscess noted at the base of ulnar side of nail of right thumb. Associated tenderness to palpation, mild swelling extending proximally with associated tenderness and pain, cp 05/09 19:10 05/08 00:10 Neuro: Orientation: to person, place \T\ time. Mentation: is normal, cp cp
[2025-05-09 02:36] VITALS: TEMP 97; O2SAT 100
[2025-05-09 02:38] VITALS: BP 116/80
== END 2025-05-09 02:24 | disposition home or self-care (01) ==
LOC: ER 21:55
PROC: 0H9FXZZ Drainage of Right Hand Skin, External Approach (ICD-10-PCS; principal; 2025-05-09)
DX: L03.011 Cellulitis of right finger (principal)
CPT/HCPCS: 96365; 85025; 80048; 36415; 84703; 96375; 99285; 10060; J2003; J2405